=== PATIENT | male | born 1955 | race Caucasian/White ===

== ENCOUNTER → 2020-07-02 | Outpatient (CLI) | payer OTHER ==
[~2020-07-02] MED LIST: AMITRIPTYLINE H10 MG PO; CEPHALEXIN500 MG PO; COMPAZINE 10MG10 MG PO; HYDROCODON-ACE1 EAC4 PO; HYDROCODONE-ACET5 ML PO; PREDNISONE20 MG PO; PROTONIX40 MG PO
== END ==
LOC: KOH-I 10:30
DX: J33.9 Nasal polyp, unspecified (principal)
CPT/HCPCS: 70486

== ENCOUNTER → 2020-08-17 | Day surgery (SDC) | payer OTHER | END | disposition home or self-care (01) | LOC: OR 06:59 | DX: J32.9 Chronic sinusitis, unspecified (principal); J34.1 Cyst and mucocele of nose and nasal sinus; J34.2 Deviated nasal septum; J34.3 Hypertrophy of nasal turbinates; F17.210 Nicotine dependence, cigarettes, uncomplicated; R10.9 Unspecified abdominal pain | CPT/HCPCS: C1726; J0171; J0690; J1100; J1720; J2001; J2250; J2405; J2704; J2710; J3010; J7030; J7120 ==